=== PATIENT | female | born 1935 | race Caucasian/White ===

== ENCOUNTER 2019-05-25 21:59 | Observation (INO) ==
[2019-05-25] MEDS ORDERED: ONDANSETRON INJ 2 MG/ML 2 ML VIAL IV STA (22:03)
[2019-05-25] MEDS ORDERED: MoRPHine SULFATE 2 MG/ML CARP IV STA (22:03)
[2019-05-25] MEDS ORDERED: SODIUM CHLORIDE 0.9% 1000ML 1,000 ML IV ONE (22:03)
[2019-05-25 22:19] LABS: Hematocrit (blood only) 40.6 % (37-47); Hemoglobin 13.9 g/dL (12.0-16.0); Mean Corpuscular Hemoglobin 31.7 pg (25-34); Mean Corpuscular Hgb Conc 34.2 g/dL (32-36); Mean Corpuscular Volume 92.7 fL (80-100); Mean Platelet Volume 10.3 fL (7.4-10.4); Platelet Count 209 K/uL (130-400); RDW Coefficient of Variation 14.4 % (11.5-14.5); RDW Standard Deviation 48.9 fL (36.4-46.3); Red Blood Count 4.38 M/uL (4.2-5.4); White Blood Count 13.99 K/uL (4.8-10.8)
[2019-05-25] MEDS ORDERED: IOVERSOL 100ml IV PRN (22:19)
[2019-05-25 22:26] LABS: iSTAT Creatinine 0.7 mg/dl (0.6-1.3); iSTAT Hemoglobin 14.6 g/dl (12.0-16.0); iSTAT Ionized Calcium 1.14 mmol/l (1.12-1.32); iSTAT Potassium 3.4 mEq/L (3.3-5.0)
[2019-05-25 22:37] LABS: Albumin Level 3.5 gm/dl (3.4-5.0); BUN Creatinine Ratio 26.4 (10-20); Calcium 9.6 mg/dl (8.5-10.1); Creatinine Clr Calc Pharmacy 43.4 ml/min; Est GFR (African American) 67.1; Est GFR (Non-African American) 57.9; Potassium 3.5 mmol/L (3.5-5.1)
[2019-05-25 22:47] LABS: Albumin Globulin Ratio 0.9 (0.9-2); Bilirubin,Total 0.4 mg/dl (0.2-1); Globulin 3.9 gm/dl (2.5-4.0); Total Protein 7.4 gm/dl (6.4-8.2); Troponin I 0.058 ng/ml (0-0.045)
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
[2019-05-25 23:20] LABS: ALC (manual) 5.79 K/uL (1.2-3.4); ANC (manual) 7.06 K/uL (1.4-6.5); Basophils # (manual) 0.13 K/uL (0-0.2); Basophils % (manual) 0.9 %; Eosinophils % (manual) 3.6 %; Large Granular Lymph # (manua 3.27 K/uL; Large Granular Lymph % (manual) 23.4 %; Lymphocytes # (manual) 2.52 K/uL (1.2-3.4); Monocytes # (manual) 0.38 K/uL (0.11-0.59); Monocytes % (manual) 2.7 %; Myelocytes # (manual) 0.13 K/uL (0-0); Myelocytes % (manual) 0.9 %; Neutrophils # (manual) 7.06 K/uL (1.4-6.5); Neutrophils % (manual) 50.5 %; RBC Morphology Unremarkable
[2019-05-26] MEDS ORDERED: ATENOLOL 50 MG TABLET PO STA (00:09)
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
--- NOTE | 2019-05-26 02:01 | Emergency Department Note ---
ED Visit Note Limited Point of Care [place] Ultrasound performed by me: Indication: Trauma Findings: Limited cardiac ultrasonography via subxiphoid and parasternal long view showed cardiac wall motion activity, no pericardial fluid, no tamponade. Limited chest ultrasound revealed bilateral lung sliding. Limited abdominal ultrasound revealed no free fluid within Morrisons pouch, splenorenal space, or the pouch of Gray. Impression: Negative FAST exam. . : Chest pain Qualifiers: Chest pain type: unspecified Qualified Code(s): R07.9 - Chest pain, unspecified Chest wall contusion Qualifiers: Encounter type: initial encounter Laterality: unspecified laterality Qualified Code(s): S20.219A - Contusion of unspecified front wall of thorax, initial encounter
[2019-05-26] MEDS ORDERED: LACTATED RINGER'S 1,000 ML IV ONE (02:14)
[2019-05-26] MEDS ORDERED: ACETAMINOPHEN 325 MG TAB PO PRN (02:14)
[2019-05-26] MEDS ORDERED: MoRPHine SULFATE 2 MG/ML CARP IV PRN (02:14)
[2019-05-26] MEDS ORDERED: PROMETHAZINE HCL 12.5 MG in SODIUM CHLORIDE 0.9% 50 ML IV PRN (02:14)
[2019-05-26] MEDS: TRAMADOL HCL 50 MG TABLET PO PRN (02:30)
[2019-05-26 04:28] LABS: Basophils # (auto) 0.02 K/uL (0-0.2); Basophils % (auto) 0.2 %; Eosinophils # (auto) 0.05 K/uL (0-0.5); Eosinophils % (auto) 0.4 %; Hematocrit (blood only) 37.1 % (37-47); Hemoglobin 12.4 g/dL (12.0-16.0); Immature Granulocytes # (auto) 0.05 K/uL (0.00-0.02); Immature Granulocytes % (auto) 0.4 %; Lymphocytes # (auto) 1.91 K/uL (1.2-3.4); Lymphocytes % (auto) 14.4 %; Mean Corpuscular Hgb Conc 33.4 g/dL (32-36); Mean Corpuscular Volume 92.8 fL (80-100); Mean Platelet Volume 10.2 fL (7.4-10.4); Monocytes # (auto) 0.96 K/uL (0.11-0.59); Monocytes % (auto) 7.2 %; Neutrophils # (auto) 10.28 K/uL (1.4-6.5); Neutrophils % (auto) 77.4 %; Platelet Count 173 K/uL (130-400); RDW Coefficient of Variation 14.3 % (11.5-14.5); RDW Standard Deviation 48.8 fL (36.4-46.3); White Blood Count 13.27 K/uL (4.8-10.8)
[2019-05-26 04:38] LABS: Partial Thromboplastin Ratio 0.9; Partial Thromboplastin Time 24.3 Seconds (21.0-31.0)
[2019-05-26 04:46] LABS: BUN Creatinine Ratio 30.7 (10-20); Calcium 8.3 mg/dl (8.5-10.1); Creatinine Clr Calc Pharmacy 57.1 ml/min; Est GFR (African American) 92.6; Est GFR (Non-African American) 79.9; Potassium 3.5 mmol/L (3.5-5.1)
[2019-05-26 04:52] LABS: Troponin I 0.067 ng/ml (0-0.045)
[2019-05-26] MEDS: LEVOTHYROXINE SODIUM 100 MCG TABLET PO SCH (05:38)
[2019-05-26] MEDS: LISINOPRIL 20 MG TAB PO SCH (05:38)
[2019-05-26 06:38] LABS: Estimated Average Glucose 117 mg/dl; Hemoglobin A1C 5.7 % (4.5-5.6)
[2019-05-26] MEDS: MULTIVITAMIN TAB PO SCH (08:13)
[2019-05-26] MEDS: LIOTHYRONINE SODIUM 5 MCG TAB PO SCH (08:13)
[2019-05-26] MEDS ORDERED: LISINOPRIL 10 MG TAB PO SCH (09:00)
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
[2019-05-26 18:51] LABS: Appearance Urine Clear (Clear); Bacteria Urine Automated Negative (Negative); Bilirubin Urine Negative (Negative); Blood Urine Negative (Negative); Cast Urine Automated 0 /lpf (0-5); Color Urine Yellow; Glucose Urine UA Negative (Negative); Ketones Urine Negative (Negative); Leukocyte Esterase Urine 2+ (Negative); Nitrite Urine Negative (Negative); Protein Urine Negative (Negative); RBC Urine Automated 0-4 /hpf (0-4); Specific Gravity Urine 1.025 (1.000-1.030); Urobilinogen Urine Negative (Negative)
[2019-05-27] MEDS: LEVOTHYROXINE SODIUM 100 MCG TABLET PO SCH (06:18)
[2019-05-27] MEDS: LIOTHYRONINE SODIUM 5 MCG TAB PO SCH (07:55)
[2019-05-27] MEDS: MULTIVITAMIN TAB PO SCH (07:55)
[2019-05-27] MEDS: LISINOPRIL 20 MG TAB PO SCH (07:55)
[2019-05-27] MEDS ORDERED: ATENOLOL 50 MG TABLET PO SCH (09:00)
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
[2019-05-27] MEDS: TRAMADOL HCL 50 MG TABLET PO PRN (10:38)
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
== END 2019-05-27 15:53 | disposition home or self-care (01) ==
LOC: ED 21:59 → 2S 21:59 → SUATTDRO 05-26 01:23 → 2S 05-26 01:40

== ENCOUNTER 2020-12-06 12:47 | Inpatient (IN) ==
[2020-12-06] MEDS ORDERED: SODIUM CHLORIDE 0.9% 1000ML 1,000 ML IV SCH (13:00)
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
[2020-12-06 13:52] LABS: Basophils # (auto) 0.03 K/uL (0-0.2); Basophils % (auto) 0.3 %; Eosinophils # (auto) 0.08 K/uL (0-0.5); Eosinophils % (auto) 0.9 %; Hematocrit (blood only) 41.6 % (37-47); Hemoglobin 14.1 g/dL (12.0-16.0); Immature Granulocytes # (auto) 0.02 K/uL (0.00-0.02); Immature Granulocytes % (auto) 0.2 %; Lymphocytes # (auto) 1.53 K/uL (1.2-3.4); Lymphocytes % (auto) 17.1 %; Mean Corpuscular Hemoglobin 31.2 pg (25-34); Mean Corpuscular Hgb Conc 33.9 g/dL (32-36); Mean Platelet Volume 10.6 fL (7.4-10.4); Monocytes # (auto) 0.57 K/uL (0.11-0.59); Monocytes % (auto) 6.4 %; Neutrophils # (auto) 6.74 K/uL (1.4-6.5); Neutrophils % (auto) 75.1 %; Platelet Count 153 K/uL (130-400); RDW Coefficient of Variation 16.5 % (11.5-14.5); Red Blood Count 4.52 M/uL (4.2-5.4); White Blood Count 8.97 K/uL (4.8-10.8)
--- NOTE | 2020-12-06 14:02 | XRay Report ---
XR chest 1V portable HISTORY: 85 years-old Female SEPSIS acute sepsis COMPARISON: Chest radiograph 10/18/2012 TECHNIQUE: Portable AP view of the chest FINDINGS: Cardiac silhouette is normal. Moderate bilateral irregular airspace opacities. There is no pneumothor ax, pleural effusion or overt pulmonary edema. Degenerative changes of the shoulders and spine ORIF h ardware of the proximal right humerus. IMPRESSION: Moderate bilateral airspace opacities suggest multifocal pneumonia. ACT 112: Negative or not required by law. The above report was generated using voice recognition software. It may contain grammatical, syntax o r spelling errors. Electronically signed by: Jeff Mims M.D. 12/06/2020 2:01 PM
[2020-12-06 14:06] LABS: Appearance Urine Clear (Clear); Bacteria Urine Automated Negative (Negative); Bilirubin Urine Negative (Negative); Blood Urine Negative (Negative); Color Urine Yellow; Epithelial Cell Urine Auto >30 /lpf (0-5); Glucose Urine UA Negative (Negative); Ketones Urine 2+ (Negative); Leukocyte Esterase Urine Trace (Negative); Nitrite Urine Negative (Negative); Protein Urine Trace (Negative); RBC Urine Automated 0-4 /hpf (0-4); Specific Gravity Urine 1.023 (1.000-1.030); Urobilinogen Urine Negative (Negative); pH Urine 5.5 (4.5-7.5)
[2020-12-06] MEDS ORDERED: cefTRIAXone SODIUM 2,000 MG/70 ML BAG IV STA (14:10)
[2020-12-06] MEDS ORDERED: AZITHROMYCIN 500 MG in DEXTROSE 5% 250 ML IV STA (14:10)
[2020-12-06 14:14] LABS: Partial Thromboplastin Time 25.7 Seconds (21.0-31.0); Prothrombin Time 10.4 Seconds (9.0-12.0)
[2020-12-06 14:31] LABS: Cast Urine Automated 0 /lpf (0-5)
[2020-12-06 14:32] LABS: Albumin Globulin Ratio 0.6 (0.9-2); Albumin Level 2.5 gm/dl (3.4-5.0); BUN Creatinine Ratio 52.2 (10-20); Bilirubin,Total 0.7 mg/dl (0.2-1); Calcium 9.1 mg/dl (8.5-10.1); Creatinine Clr Calc Pharmacy 62.2 ml/min; Est GFR (African American) 94.1; Est GFR (Non-African American) 81.2; Globulin 4.5 gm/dl (2.5-4.0); Magnesium 1.9 mg/dl (1.8-2.4); Potassium 3.7 mmol/L (3.5-5.1); Troponin I 0.169 ng/ml (0-0.045)
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
--- NOTE | 2020-12-06 17:40 | CT Scan Report ---
CT chest diagnostic wo con CT DOSE: 402.58 mGy.cm CLINICAL HISTORY: 85 years-old Female with bilateral patchy infiltrates. Acute shortness of breath w ith pulmonary opacities TECHNIQUE: Multiaxial CT images of the chest were performed without contrast. A dose lowering techni que was utilized adhering to the principles of ALARA. COMPARISON: Chest CT 05/25/2019 FINDINGS: Unremarkable thyroid. Study is degraded by respiratory motion artifact. Mildly prominent me diastinal lymph nodes are likely reactive. Calcified AP window lymph nodes redemonstrated. Heart is u pper limits of normal in size. Pericardial calcifications are noted in addition to extensive coronary artery calcifications. No thoracic aortic aneurysm. Calcified plaque of the thoracic aorta. Trace pleural effusions. No pneumothorax. Bilateral intralobular septal thickening. Extensive patchy bilateral airspace densities with intermixed groundglass opacities. Central airways are patent. No pn eumoperitoneum. No acute process of the imaged upper abdomen. Calcified granulomata of the liver and spleen. Tiny hiatal hernia. Degenerative changes of the spine and shoulders. Chondrocalcinosis of the glenohumeral joints. Partially imaged orthopedic hardware of the right proximal humerus. Bridging os teophytes are noted throughout the thoracic spine. IMPRESSION: 1. Cardiomegaly with intralobular septal thickening suggestive of pulmonary edema. 2. Extensive bilateral airspace opacities suggests multifocal pneumonia. 3. Trace pleural effusions. 4. Additional findings as above. ACT 112: Negative or not required by law. Electronically signed by: Jeff Mims M.D. 12/06/2020 5:39 PM
[2020-12-06] MEDS ORDERED: ACETAMINOPHEN 325 MG TAB PO PRN (17:45)
[2020-12-06] MEDS ORDERED: POLYETHYLENE (MIRALAX) 17 GM PACK PO PRN (17:45)
[2020-12-06] MEDS ORDERED: ONDANSETRON INJ 2 MG/ML 2 ML VIAL IV PRN (17:45)
[2020-12-06] MEDS: ENOXAPARIN INJ 40 MG/0.4 ML SYR SQ SCH (18:18)
[2020-12-06 22:43] LABS: Influenza A virus by PCR Negative (Negative); Influenza B virus by PCR Negative (Negative)
[2020-12-07] MEDS ORDERED: ALBUTEROL HFA 8 GM INHALER INH SCH
[2020-12-07] MEDS: ALBUTEROL HFA 8 GM INHALER INH SCH ×4 (00:39→19:17)
[2020-12-07] MEDS: LEVOTHYROXINE SODIUM 100 MCG TABLET PO SCH (05:39)
[2020-12-07 06:12] LABS: Basophils # (auto) 0.03 K/uL (0-0.2); Basophils % (auto) 0.4 %; Eosinophils # (auto) 0.37 K/uL (0-0.5); Eosinophils % (auto) 5.4 %; Hematocrit (blood only) 37.2 % (37-47); Hemoglobin 12.6 g/dL (12.0-16.0); Immature Granulocytes # (auto) 0.01 K/uL (0.00-0.02); Immature Granulocytes % (auto) 0.1 %; Lymphocytes # (auto) 1.47 K/uL (1.2-3.4); Lymphocytes % (auto) 21.5 %; Mean Corpuscular Hgb Conc 33.9 g/dL (32-36); Mean Corpuscular Volume 91.6 fL (80-100); Mean Platelet Volume 10.8 fL (7.4-10.4); Monocytes % (auto) 8.8 %; Neutrophils # (auto) 4.36 K/uL (1.4-6.5); Neutrophils % (auto) 63.8 %; Platelet Count 158 K/uL (130-400); RDW Coefficient of Variation 16.6 % (11.5-14.5); RDW Standard Deviation 56.4 fL (36.4-46.3); Red Blood Count 4.06 M/uL (4.2-5.4); White Blood Count 6.84 K/uL (4.8-10.8)
[2020-12-07 06:50] LABS: Albumin Level 2.2 gm/dl (3.4-5.0); BUN Creatinine Ratio 56.2 (10-20); Bilirubin Direct 0.1 mg/dl (0-0.2); C Reactive Protein 5.5 mg/dl (0-0.29); Calcium 8.7 mg/dl (8.5-10.1); Creatinine Clr Calc Pharmacy 76.8 ml/min; Est GFR (African American) 100.9; Est GFR (Non-African American) 87.1; Magnesium 1.9 mg/dl (1.8-2.4); Potassium 3.2 mmol/L (3.5-5.1)
[2020-12-07 07:02] LABS: Bilirubin,Total 0.5 mg/dl (0.2-1); Thyroid Stimulating Hormone 3.96 uIu/ml (0.300-4.500); Total Protein 6.2 gm/dl (6.4-8.2); Troponin I 0.148 ng/ml (0-0.045)
--- NOTE | 2020-12-07 08:17 | Hospitalist Progress Note ---
Date of Service December 07, 2020 Assessment & Plan (1) Abnormal chest x-ray: Bilateral symmetrical patchy opacities on xray- PNA vs. IPF vs. viral CT chest 12/06/20 IMPRESSION: 1. Cardiomegaly with intralobular septal thickening suggestive of pulmonary edema. 2. Extensive bilateral airspace opacities suggests multifocal pneumonia. 3. Trace pleural effusions. - Started on ABX in the ER will continue Rocephin and Azithromycin- continue on bronchodialators to help with expectoration - Legionella antigen Histoplasmosis, mycoplasma, chlamydia sent - WBC 8, requiring 2LNC, non productive cough, PCT 1.31. [id number], PORT- 116, - Normal BNP - Will also send quantiferon gold - ESR/CRP mildly elevated (2) Acute respiratory failure with hypoxia: Pulse ox 86% on room air on arrival Placed on 2 L nasal cannula-continue supplemental O2 to keep pulse ox greater than 88% Secondary to pneumonia (3) UTI (urinary tract infection): Likely contaminant but with suprapubic tenderness - continue Rocephin until cultures result (4) CKD (chronic kidney disease), stage II: Follow avoid nephrotoxic agents as possible and if needed will minimize exposure - Patient at one time was on Lisinopril and Atenolol, unclear of discontinuation. - Risk stratify CVD- patient was with history of HLD but intolerant to medicaitons in 2012, (5) History of right-sided carotid endarterectomy: As above Start aspirin (6) Elevated troponin I level: Asymptomatic, normal ECG - most likely demand ischemia, not acs - risk stratify as above, add on ASA for primary prevention -Check lipid panel in the morning (7) Hypothyroid: Continue home Synthroid dose - TSH and T4 for morning (8) Arthritis: Tylenol PO - Patient uses cannabinoid oil at home, if able and needed, she may bring this from home and use. Will need to be ordered. (9) DVT prophylaxis: SCD's Lovenox 40 sq qd Admission and Anticipated Discharge Date Admission Date: December 06, 2020 Subjective pt was pleasantly confused, she was in no distress but was wearing oxygen, dry non productive cough, she states she has lost weight recently and family feels she has had a downhill course Review of Systems Review of Systems: Mild distress and fatigue no headache, blurry or double vision no speech or swallowing issues no chest pain, pressure or palpitations shortness of breath, dry nonproductive cough no wheezes no abdominal pain, nausea or vomiting, diarrhea or constipation no dysuria, hematuria or frequency no focal joint pain or swelling no back pain, CVA tenderness or radicular pain no bruising, bleeding or rashes no focal signs of weakness or numbness or altered sensation no complaints of anxiety or depression.. Physical Exam Physical Exam: The patient appeared well nourished and normally developed. Appears stated age Vital signs as documented. Head exam is normocephalic atraumatic no scleral icterus Neck is without JVD, thyromegaly, or carotid bruits. Lungs are diminished air movement no wheezes no focal air loss no egophony no rales Cardiac exam, Rhythm is regular.. No murmurs, rubs or gallops. Abdominal exam reveals normal bowel sounds, soft non tender, no masses Extremities are trace edematous and both pedal pulses are present Neurologic exam is alert and oriented x2, no focal loss of strength or sensation Skin is without bruises or rashes Psychologically is with concerns for memory impairment Results & Data Results & Data ([facility]) Vital Signs (Past 12 Hours) Vital Signs Temp Pulse Pulse Pulse Resp BP BP 12/07/20 07:12 66 12/07/20 07:04 68 18 12/07/20 07:00 98.4 F 73 20 117/69 12/07/20 05:53 98.1 F 67 20 147/85 H 12/07/20 04:03 98.6 F 76 18 125/70 12/07/20 00:40 73 16 12/06/20 23:29 98.1 F 69 18 127/76 12/06/20 22:49 71 12/06/20 20:04 98.8 F 74 18 130/79 Pulse Ox 12/07/20 07:12 12/07/20 07:04 95 12/07/20 07:00 93 12/07/20 05:53 93 12/07/20 04:03 96 12/07/20 00:40 93 12/06/20 23:29 96 12/06/20 22:49 12/06/20 20:04 94 PG Care Time/CCT Total # of Minutes Spent Total Time Spent with Patient: Total time spent is greater than 50% in coordination of care (as documented) at patient's floor/unit and/or counseling patient: Coding Level of Care Code 48880 Subseq Hosp Care Lvl 3 Diagnoses Abnormal chest x-ray R93.89 Acute respiratory failure with hypoxia J96.01 UTI (urinary tract infection) N39.0 CKD (chronic kidney disease), stage II N18.2 History of right-sided carotid endarterectomy Z98.890 Elevated troponin I level R74.8 Hypothyroid E03.8 Hypothyroidism type: other Arthritis M19.90 DVT prophylaxis Z29.9 (1) Hypothyroid Hypothyroidism type: other Qualified Code(s): E03.8 - Other specified hypothyroidism
[2020-12-07] MEDS ORDERED: MAGNESIUM SULFATE / D5W 1 GM/100 ML BAG IV ONE (08:30)
[2020-12-07] MEDS: POTASSIUM CHLORIDE CRTAB 20 MEQ TABCR PO SCH ×2 (08:57→20:12)
[2020-12-07] MEDS: ASPIRIN 81 MG ECTAB PO SCH (08:57)
[2020-12-07] MEDS: AZITHROMYCIN 250 MG TAB PO SCH (08:58)
[2020-12-07] MEDS: ENOXAPARIN INJ 40 MG/0.4 ML SYR SQ SCH (08:58)
[2020-12-07] MEDS ORDERED: methylPREDNISolone 125 MG in SYRINGE 0 ML IV SCH (09:00)
--- NOTE | 2020-12-07 12:34 | Electrocardiogram Report ---
Test Reason : Blood Pressure : / mmHG Vent. Rate : 081 BPM Atrial Rate : 081 BPM P-R Int : 176 ms QRS Dur : 086 ms QT Int : 374 ms P-R-T Axes : 015 -14 036 degrees QTc Int : 434 ms Normal sinus rhythm Normal ECG When compared with ECG of 26-MAY-2019 10:35, CO interval has decreased Confirmed by Herminio Dove ([id number]) on 12/07/2020 12:33:55 PM Referred By: REFERRED SELF Confirmed By:Herminio Dove
--- NOTE | 2020-12-07 12:45 | Electrocardiogram Report ---
Test Reason : Blood Pressure : / mmHG Vent. Rate : 067 BPM Atrial Rate : 067 BPM P-R Int : 186 ms QRS Dur : 080 ms QT Int : 408 ms P-R-T Axes : 049 -15 013 degrees QTc Int : 431 ms Normal sinus rhythm Minimal voltage criteria for LVH, may be normal variant Borderline ECG When compared with ECG of 06-DEC-2020 12:56, (unconfirmed) No significant change was found Confirmed by Herminio Dove ([id number]) on 12/07/2020 12:45:26 PM Referred By: REFERRED SELF Confirmed By:Herminio Dove
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
[2020-12-07] MEDS: cefTRIAXone SODIUM 2,000 MG in DEXTROSE 5% 50 ML IV SCH (14:08)
[2020-12-07] MEDS ORDERED: ALBUT/IPRATROP 3MG/0.5MG NEB 3 ML VIAL NEB PRN (18:03)
[2020-12-08] MEDS: ALBUTEROL HFA 8 GM INHALER INH SCH ×4 (00:08→19:21)
[2020-12-08] MEDS: LEVOTHYROXINE SODIUM 100 MCG TABLET PO SCH (06:03)
[2020-12-08 07:14] LABS: Basophils # (auto) 0.01 K/uL (0-0.2); Basophils % (auto) 0.1 %; Hematocrit (blood only) 38.8 % (37-47); Hemoglobin 12.9 g/dL (12.0-16.0); Immature Granulocytes # (auto) 0.04 K/uL (0.00-0.02); Immature Granulocytes % (auto) 0.4 %; Lymphocytes # (auto) 1.92 K/uL (1.2-3.4); Mean Corpuscular Hemoglobin 30.6 pg (25-34); Mean Corpuscular Hgb Conc 33.2 g/dL (32-36); Mean Corpuscular Volume 92.2 fL (80-100); Mean Platelet Volume 10.5 fL (7.4-10.4); Monocytes # (auto) 1.06 K/uL (0.11-0.59); Neutrophils # (auto) 7.61 K/uL (1.4-6.5); Neutrophils % (auto) 71.5 %; Platelet Count 187 K/uL (130-400); RDW Coefficient of Variation 16.2 % (11.5-14.5); RDW Standard Deviation 54.9 fL (36.4-46.3); Red Blood Count 4.21 M/uL (4.2-5.4); White Blood Count 10.64 K/uL (4.8-10.8)
[2020-12-08] MEDS: POTASSIUM CHLORIDE CRTAB 20 MEQ TABCR PO SCH (07:46)
[2020-12-08] MEDS: ASPIRIN 81 MG ECTAB PO SCH (07:49)
[2020-12-08] MEDS: ENOXAPARIN INJ 40 MG/0.4 ML SYR SQ SCH (07:49)
[2020-12-08] MEDS: AZITHROMYCIN 250 MG TAB PO SCH (07:49)
[2020-12-08 07:58] LABS: BUN Creatinine Ratio 47.9 (10-20); Calcium 8.6 mg/dl (8.5-10.1); Creatinine Clr Calc Pharmacy 87.1 ml/min; Est GFR (African American) 104.4; Est GFR (Non-African American) 90.1; Magnesium 2.2 mg/dl (1.8-2.4); Potassium 4.1 mmol/L (3.5-5.1)
[2020-12-08] MEDS: cefTRIAXone SODIUM 2,000 MG in DEXTROSE 5% 50 ML IV SCH (13:05)
--- NOTE | 2020-12-08 14:18 | Hospitalist Progress Note ---
Date of Service December 08, 2020 Assessment & Plan (1) Multifocal pneumonia: bilateral patchy infiltrates responding well to Ceftriaxone and Zithromax Legionella, Histoplasma, Chlamydia, quantiferon gold pending doing much better, down to 1L NC, no fever, WBC 10k, procalcitonin down to 0.44 complete 7 days of antibiotics (2) Abnormal CT scan of lung: appreciate pulmonary consultation needs repeat CT in several weeks follow up on send out labs no indication for steroids at this time as it is unclear what we are treating also, she is getting better on antibiotics alone (3) Abnormal chest x-ray: Bilateral symmetrical patchy opacities on xray- PNA vs. IPF vs. viral feeling much better the past 48 hours, good response to Ceftriaxone and Zithromax down to 1L NC today favors an atypical bacterial pneumonia CT chest 12/06/20 IMPRESSION: 1. Cardiomegaly with intralobular septal thickening suggestive of pulmonary edema. 2. Extensive bilateral airspace opacities suggests multifocal pneumonia. 3. Trace pleural effusions. - Legionella antigen Histoplasmosis, mycoplasma, chlamydia sent - WBC 10k, requiring 1LNC, non productive cough, PCT 0.44 - Normal BNP - Will also send quantiferon gold (pending) - ESR/CRP mildly elevated (4) Acute respiratory failure with hypoxia: Pulse ox 86% on room air on arrival Placed on 2 L nasal cannula-continue supplemental O2 to keep pulse ox greater than 88% Secondary to pneumonia down to 1L today, 96%, might be able to titrate to room air tonight/tomorrow (5) UTI (urinary tract infection): Likely contaminant but with suprapubic tenderness - continue Rocephin for pneumonia UTI ruled out, no growth on culture (6) CKD (chronic kidney disease), stage II: Follow avoid nephrotoxic agents as possible and if needed will minimize exposure - Patient at one time was on Lisinopril and Atenolol, unclear of disc ontinuation. Cr is stable, making urine (7) History of right-sided carotid endarterectomy: As above Start aspirin (8) Elevated troponin I level: Asymptomatic, normal ECG - most likely demand ischemia, not acs - risk stratify as above, add on ASA for primary prevention -Check lipid panel in the morning (9) Hypothyroid: Continue home Synthroid dose - TSH and T4 for morning (10) Arthritis: Tylenol PO - Patient uses cannabinoid oil at home, if able and needed, she may bring this from home and use. Will need to be ordered. (11) DVT prophylaxis: SCD's Lovenox 40 sq qd (12) Weakness: PT/OT consulted, has been sick for 2-3 weeks at home will likely need rehab anticipate that she would be ready 12/10 Admission and Anticipated Discharge Date Admission Date: December 06, 2020 Subjective reviewed chart, appreciate pulmonology consult, recommendations, will continue antibiotics reviewed labs today, WBC 10k, Hb 12.9, plts 187, K 4.1 and Cr 0.46 evaluated by OT today, she is weak, they recommended rehab prior to going home urine Legionella and histoplasma pending no fever, down to 1L NC today she says she feels better than yesterday, much better compared to admission her daughter is at the bedside, says she has not felt well for a few weeks, maybe 2-3 has not been eating well, losing weight discussed rehab, she and her daughter are open to the idea, discussed that she would be ready by Tuesday Review of Systems Review of Systems: All systems reviewed & are unremarkable except as noted in Subjective Constitutional: + fatigue and + weakness; no fever, no chills and no sweats Respiratory: + cough, + dyspnea and + dyspnea on exertion; no sputum production Cardiovascular: no chest pain and no edema Gastrointestinal: no abdominal pain, no nausea, no vomiting, no constipation and no diarrhea/loose stools Physical Exam Constitutional: WD/WN, vitals as above + frail appearing; no acute distress Neck: trachea midline, no thyromegaly Respiratory: normal respiratory effort, lungs clear to auscultation Cardiovascular: RRR, no murmur, no edema Gastrointestinal (Abdomen): normal bowel sounds, soft, nontender, no hepatosplenomegaly Musculoskeletal: Head/Neck/Chest: normocephalic, head atraumatic and neck supple Spine: normal cervical ROM and normal thoraco-lumbar ROM Extremities: extremities normal to inspection and + abnormal strength (generalized weakness, cannot transition independently) Skin: no rashes, warm and dry Neurologic: patellar DTR's 2+ bilat, sensation intact and PERRL, EOMI, accommodation nl, no face palsy, no dysarthria Psychiatric: A+Ox3, euthymic affect Lymphatic: no cervical or axillary lymphadenopathy Results & Data Results & Data ([facility]) Vital Signs (Past 12 Hours) Vital Signs Temp Pulse Pulse Pulse Resp BP BP 12/08/20 12:35 72 18 12/08/20 11:00 36.4 C L 71 16 145/79 H 12/08/20 10:34 12/08/20 07:30 36.6 C 64 66 18 163/82 H 12/08/20 07:13 68 18 12/08/20 04:10 36.5 C 66 18 152/79 H Pulse Ox Pulse Ox 12/08/20 12:35 97 12/08/20 11:00 95 12/08/20 10:34 92 12/08/20 07:30 95 12/08/20 07:13 94 12/08/20 04:10 90 Laboratory Results Laboratory Results - last 24 hr 12/08/20 12/08/20 12/08/20 06:47 06:47 06:47 WBC 10.64 RBC 4.21 Hgb 12.9 Hct 38.8 MCV 92.2 MCH 30.6 MCHC 33.2 RDW Std Deviation 54.9 H RDW Coeff of Dio 16.2 H Plt Count 187 MPV 10.5 H Immature Gran % (Auto) 0.4 Neut % (Auto) 71.5 Lymph % (Auto) 18.0 Darke % (Auto) 10.0 Eos % (Auto) 0.0 Baso % (Auto) 0.1 Neut # (Auto) 7.61 H Lymph # (Auto) 1.92 Darke # (Auto) 1.06 H Eos # (Auto) 0.00 Baso # (Auto) 0.01 Immature Gran # (Auto) 0.04 H Sodium 139 Potassium 4.1 D Chloride 108 H Carbon Dioxide 24 Anion Gap 7.0 BUN 22 H Creatinine 0.46 L Est Cr Clr Drug Dosing 87.1 Est GFR ( Amer) 104.4 Est GFR (Non-Af Amer) 90.1 BUN/Creatinine Ratio 47.9 H Glucose 114 H Calcium 8.6 Magnesium 2.2 Procalcitonin 0.44 U Histopl Galactoman Ag Urine Legionella Ag 12/08/20 12/08/20 Unknown Unknown WBC RBC Hgb Hct MCV MCH MCHC RDW Std Deviation RDW Coeff of Dio Plt Count MPV Immature Gran % (Auto) Neut % (Auto) Lymph % (Auto) Darke % (Auto) Eos % (Auto) Baso % (Auto) Neut # (Auto) Lymph # (Auto) Darke # (Auto) Eos # (Auto) Baso # (Auto) Immature Gran # (Auto) Sodium Potassium Chloride Carbon Dioxide Anion Gap BUN Creatinine Est Cr Clr Drug Dosing Est GFR ( Amer) Est GFR (Non-Af Amer) BUN/Creatinine Ratio Glucose Calcium Magnesium Procalcitonin U Histopl Galactoman Ag Pending Urine Legionella Ag Pending Medications Administered Current Inpatient Medications Acetaminophen (Acetaminophen 325 Mg Tab) 650 mg PO Q4H PRN PRN Reason: Pain or Fever Stop: 01/05/21 17:44 Albuterol (Albuterol Hfa 8 Gm Inhaler) 2 puffs INH Q6R [facility]; Protocol Stop: 01/06/21 00:59 Last Admin: 12/08/20 12:34 Dose: 2 puffs Documented by: Albuterol (Albut/Ipratrop 3mg/0.5mg Neb 3 Ml Vial) 3 ml NEB Q4R PRN PRN Reason: Shortness Of Breath Or Wheezing Stop: 01/06/21 18:59 Aspirin (Aspirin 81 Mg Ectab) 81 mg PO [facility] Stop: 01/06/21 08:59 Last Admin: 12/08/20 07:49 Dose: 81 mg Documented by: Azithromycin (Azithromycin 250 Mg Tab) 250 mg PO [facility] Stop: 12/14/20 08:59 Last Admin: 12/08/20 07:49 Dose: 250 mg Documented by: Enoxaparin Sodium (Enoxaparin Inj 40 Mg/0.4 Ml Syr) 40 mg SQ [facility] Stop: 01/05/21 16:14 Last Admin: 12/08/20 07:49 Dose: 40 mg Documented by: Ceftriaxone Sodium 2,000 mg/ (Dextrose) 50 mls @ 100 mls/hr IV Q24H [facility]; Protocol Stop: 12/14/20 13:59 Last Infusion: 12/08/20 13:46 Dose: Infused Documented by: Levothyroxine Sodium (Levothyroxine Sodium 100 Mcg Tablet) [facility] Stop: 01/06/21 06:29 Last Admin: 12/08/20 06:03 Dose: Not Given Documented by: Ondansetron HCl (Ondansetron Inj 2 Mg/Ml 2 Ml Vial) 4 mg IV Q6H PRN PRN Reason: Nausea Stop: 01/05/21 17:44 Polyethylene Glycol (Polyethylene (Miralax) 17 Gm Pack) 17 gm PO DAILY PRN PRN Reason: Constipation Stop: 01/05/21 17:44 Last Admin: 12/06/20 18:15 Dose: 17 gm Documented by: PG Care Time/CCT Total # of Minutes Spent Total Time Spent with Patient: Total time spent is greater than 50% in coordination of care (as documented) at patient's floor/unit and/or counseling patient: Coding Level of Care Code 97012 Subseq Hosp Care Lvl 3 Diagnoses Multifocal pneumonia J18.[address] scan of lung R91.8 Abnormal chest x-ray R93.89 Acute respiratory failure with hypoxia J96.01 UTI (urinary tract infection) N39.0 CKD (chronic kidney disease), stage II N18.2 History of right-sided carotid endarterectomy Z98.890 Elevated troponin I level R74.8 Hypothyroid E03.8 Hypothyroidism type: other Arthritis M19.90 DVT prophylaxis Z29.9 Weakness R53.1 (1) Hypothyroid Hypothyroidism type: other Qualified Code(s): E03.8 - Other specified hypothyroidism
--- NOTE | 2020-12-08 16:23 | Pulmonology Progress Note ---
Date of Service December 08, 2020 Assessment & Plan (1) Multifocal pneumonia: (2) Hypoxia: (3) Acute respiratory failure with hypoxia: (4) Abnormal CT scan of lung: Impression: 85-year-old female without prior pulmonary history presenting with fevers, weight loss and an abnormal CT scan with nonproductive cough. Her procalcitonin is elevated which would argue for bacterial infection. This may be consistent with an atypical pneumonia. Mycoplasma serologies are pending. Recommendations: 1. This pattern may be consistent with an atypical infectious etiology. . She prefers a more conservative approach at this time and supposed to bronchoscopy. Will reevaluate tomorrow. Awaiting atypical infectious work-up including Chlamydia serologies, mycoplasma and Legionella. Recommend completing 5 to 7 days of antimicrobial therapy and considering follow-up CT imaging in 4 to 6 weeks depending on clinical course. 2. Would not recommend empiric steroids at this point time as it is unclear what were treating. The differential would include other inflammatory and proliferative disorders such as LIP, bronchocentric granulomatosis as well as atypical infections including nontuberculous mycobacterial infection. The pattern would not be consistent with reactivation pulmonary TB and I think the likelihood of that is much lower. QuantiFERON gold is pending. Difficulty with steroids is that if the patient responds, we are unclear what were treating which makes long-term management more complicated. Given her clinical improvement would follow clinically and reassess. This was also discussed with the patient's daughter, Tesha Garcia. Her phone number is [phone]. She would like an update tomorrow. Admission and Anticipated Discharge Date Admission Date: December 06, 2020 Subjective Patient feels that her breathing is a little easier today. She has not been very active today and so it is difficult for her to say what her dyspnea level is with exertion. She denies any significant cough. No fevers overnight. No chest pain. Her daughters at bedside today. Review of Systems Review of Systems: All systems reviewed & are unremarkable except as noted in HPI & below Physical Exam Constitutional: WD/WN, vitals as above Neck: trachea midline, no thyromegaly Respiratory: normal respiratory effort Auscultation: + wheezes Minimal crackles in the left lower lobe. Cardiovascular: RRR, no murmur, no edema Gastrointestinal (Abdomen): normal bowel sounds, soft, nontender, no hepatosplenomegaly Musculoskeletal: Extremities: extremities normal to inspection Skin: no rashes, warm and dry Neurologic: Nonfocal exam Lymphatic: no cervical lymphadenopathy Results & Data Results & Data ([facility]) Vital Signs (Past 12 Hours) Vital Signs Temp Pulse Pulse Pulse Resp BP BP 12/08/20 14:49 98.1 F 75 20 126/77 12/08/20 12:35 72 18 12/08/20 11:00 97.5 F L 71 16 145/79 H 12/08/20 10:34 12/08/20 07:30 97.9 F 64 66 18 163/82 H 12/08/20 07:13 68 18 Pulse Ox Pulse Ox 12/08/20 14:49 96 12/08/20 12:35 97 12/08/20 11:00 95 12/08/20 10:34 92 12/08/20 07:30 95 12/08/20 07:13 94 I reviewed the medications, vital signs, labs and CT chest imaging. I also reviewed the hospitalist notes. PG Care Time/CCT Total # of Minutes Spent Total Time Spent with Patient: Total time spent is greater than 50% in coordination of care (as documented) at patient's floor/unit and/or counseling patient: Coding Level of Care Code 32952 Subseq Hosp Care Lvl 3 Diagnoses Multifocal pneumonia J18.9 Hypoxia R09.02 Acute respiratory failure with hypoxia J96.[address] scan of lung R91.8
[2020-12-09] MEDS: ALBUTEROL HFA 8 GM INHALER INH SCH ×2 (00:11→07:18)
[2020-12-09] MEDS: LEVOTHYROXINE SODIUM 100 MCG TABLET PO SCH (05:38)
[2020-12-09] MEDS ORDERED: ALBUTEROL HFA 8 GM INHALER INH PRN (07:17)
[2020-12-09 07:44] LABS: Basophils # (auto) 0.03 K/uL (0-0.2); Basophils % (auto) 0.3 %; Eosinophils # (auto) 0.35 K/uL (0-0.5); Hematocrit (blood only) 37.6 % (37-47); Hemoglobin 12.4 g/dL (12.0-16.0); Immature Granulocytes # (auto) 0.02 K/uL (0.00-0.02); Immature Granulocytes % (auto) 0.2 %; Lymphocytes # (auto) 2.55 K/uL (1.2-3.4); Lymphocytes % (auto) 29.3 %; Mean Corpuscular Hemoglobin 30.5 pg (25-34); Mean Corpuscular Volume 92.4 fL (80-100); Mean Platelet Volume 10.1 fL (7.4-10.4); Monocytes # (auto) 1.14 K/uL (0.11-0.59); Monocytes % (auto) 13.1 %; Neutrophils # (auto) 4.61 K/uL (1.4-6.5); Neutrophils % (auto) 53.1 %; Platelet Count 182 K/uL (130-400); RDW Coefficient of Variation 16.2 % (11.5-14.5); RDW Standard Deviation 55.1 fL (36.4-46.3); Red Blood Count 4.07 M/uL (4.2-5.4)
[2020-12-09 08:19] LABS: BUN Creatinine Ratio 37.5 (10-20); Calcium 8.5 mg/dl (8.5-10.1); Creatinine Clr Calc Pharmacy 77.1 ml/min; Est GFR (African American) 100.3; Est GFR (Non-African American) 86.5; Magnesium 1.7 mg/dl (1.8-2.4); Potassium 3.9 mmol/L (3.5-5.1)
[2020-12-09] MEDS: ASPIRIN 81 MG ECTAB PO SCH (08:41)
[2020-12-09] MEDS: AZITHROMYCIN 250 MG TAB PO SCH (08:41)
[2020-12-09] MEDS: ENOXAPARIN INJ 40 MG/0.4 ML SYR SQ SCH (08:42)
--- NOTE | 2020-12-09 08:50 | XRay Report ---
XR chest 1V portable HISTORY: pneumonia, hypoxemia COMPARISON: Chest 12/06/2020. FINDINGS: No pneumothorax. No pleural effusions. The heart is borderline enlarged. Postoperative adler ges again noted within the proximal right humerus. Patchy bilateral multifocal airspace opacities and diffuse interstitial thickening persists. IMPRESSION: No change in the moderate multifocal airspace opacities consistent with a pneumonia. ACT 112: Negative or not required by law. Electronically signed by: Rip Watson M.D. 12/09/2020 8:49 AM
--- NOTE | 2020-12-09 09:57 | Hospitalist Progress Note ---
Date of Service December 09, 2020 Assessment & Plan (1) Multifocal pneumonia: bilateral patchy infiltrates responding well to Ceftriaxone and Zithromax, complete 7 days Legionella, Histoplasma, Chlamydia, quantiferon gold still pending doing much better, stable on 3L NC, no fever, WBC 8k, procalcitonin down to 0.44 on 12/08 complete 7 days of antibiotics (2) Abnormal CT scan of lung: appreciate pulmonary consultation needs repeat CT in several weeks, no plans for bronchoscopy at this time follow up on send out labs no indication for steroids at this time as it is unclear what we are treating also, she is getting better on antibiotics alone (3) Abnormal chest x-ray: Bilateral symmetrical patchy opacities on xray- PNA vs. IPF vs. viral feeling much better the past 48 hours, good response to Ceftriaxone and Zithromax down to 1L NC today favors an atypical bacterial pneumonia CT chest 12/06/20 IMPRESSION: 1. Cardiomegaly with intralobular septal thickening suggestive of pulmonary edema. 2. Extensive bilateral airspace opacities suggests multifocal pneumonia. 3. Trace pleural effusions. - Legionella antigen Histoplasmosis, mycoplasma, chlamydia sent - WBC 8k, requiring 3LNC, non productive cough, PCT 0.44 - Normal BNP - Will also send quantiferon gold (pending) - ESR/CRP mildly elevated (4) Acute respiratory failure with hypoxia: Pulse ox 86% on room air on arrival Placed on 2 L nasal cannula-continue supplemental O2 to keep pulse ox greater than 88% Secondary to pneumonia up a little at 3L but would probably be okay on 2L (5) UTI (urinary tract infection): Likely contaminant but with suprapubic tenderness - continue Rocephin for pneumonia UTI ruled out, no growth on culture (6) CKD (chronic kidney disease), stage II: Follow avoid nephrotoxic agents as possible and if needed will minimize exposure - Patient at one time was on Lisinopril and Atenolol, unclear of discontinuation. Cr is stable, making urine (7) History of right-sided carotid endarterectomy: As above Start aspirin (8) Elevated troponin I level: Asymptomatic, normal ECG - most likely demand ischemia, not acs - risk stratify as above, add on ASA for primary prevention -Check lipid panel in the morning (9) Hypothyroid: Continue home Synthroid dose - TSH and T4 for morning (10) Arthritis: Tylenol PO - Patient uses cannabinoid oil at home, if able and needed, she may bring this from home and use. Will need to be ordered. (11) DVT prophylaxis: SCD's Lovenox 40 sq qd (12) Weakness: PT/OT consulted, has been sick for 2-3 weeks at home will likely need rehab anticipate that she would be ready 12/10 (13) Hypomagnesemia: low at 1.7, will give Mag Sulfate 1gm IV today Admission and Anticipated Discharge Date Admission Date: December 06, 2020 Subjective patient feels fine this morning, no major issues she says she does not feel short of breath, she is on 3L, she walked with therapy her appetite is still very poor, this has been ongoing for weeks, family has gotten medicinal marijuana to try to help labs this morning show normal WBC, Hb 12, K 3.9, Cr 0.5 and Mg 1.7, will replace IV she agrees with goal of going to rehab she walked 125ft and got fatigued, had to sit in wheelchair and then walked 12 ft, click score was 20 not medically ready for discharge Review of Systems Review of Systems: All systems reviewed & are unremarkable except as noted in Subjective Constitutional: + fatigue and + weakness; no fever, no chills and no sweats Respiratory: + cough, + dyspnea and + dyspnea on exertion; no hemoptysis, no sputum production and no wheezing Cardiovascular: no chest pain and no edema Gastrointestinal: + early satiety (no appetite); no abdominal pain, no nausea, no vomiting, no constipation and no diarrhea/loose stools Physical Exam Constitutional: WD/WN, vitals as above + frail appearing; no acute distress Neck: trachea midline, no thyromegaly Respiratory: normal respiratory effort, lungs clear to auscultation Cardiovascular: RRR, no murmur, no edema Gastrointestinal (Abdomen): normal bowel sounds, soft, nontender, no hepatosplenomegaly Musculoskeletal: Head/Neck/Chest: normocephalic, head atraumatic and neck supple Spine: normal cervical ROM and normal thoraco-lumbar ROM Extremities: extremities normal to inspection and + abnormal strength (generalized weakness, cannot transition independently) Skin: no rashes, warm and dry Neurologic: patellar DTR's 2+ bilat, sensation intact and PERRL, EOMI, accommodation nl, no face palsy, no dysarthria Psychiatric: A+Ox3, euthymic affect Lymphatic: no cervical or axillary lymphadenopathy Results & Data Results & Data ([facility]) Vital Signs (Past 12 Hours) Vital Signs Temp Pulse Resp BP Pulse Ox Pulse Ox 12/09/20 07:11 36.7 C 65 16 147/81 H 94 12/09/20 06:14 69 136/74 94 12/09/20 02:03 98 12/09/20 00:13 66 18 98 12/08/20 23:26 36.5 C 69 18 127/75 98 Laboratory Results Laboratory Results - last 24 hr 12/09/20 12/09/20 07:33 07:33 WBC 8.70 RBC 4.07 L Hgb 12.4 Hct 37.6 MCV 92.4 MCH 30.5 MCHC 33.0 RDW Std Deviation 55.1 H RDW Coeff of Dio 16.2 H Plt Count 182 MPV 10.1 Immature Gran % (Auto) 0.2 Neut % (Auto) 53.1 Lymph % (Auto) 29.3 [place] % (Auto) 13.1 Eos % (Auto) 4.0 Baso % (Auto) 0.3 Neut # (Auto) 4.61 Lymph # (Auto) 2.55 [place] # (Auto) 1.14 H Eos # (Auto) 0.35 Baso # (Auto) 0.03 Immature Gran # (Auto) 0.02 Sodium 140 Potassium 3.9 Chloride 109 H Carbon Dioxide 27 Anion Gap 4.0 BUN 20 H Creatinine 0.52 L Est Cr Clr Drug Dosing 77.1 Est GFR ( Amer) 100.3 Est GFR (Non-Af Amer) 86.5 BUN/Creatinine Ratio 37.5 H Glucose 80 Calcium 8.5 Magnesium 1.7 L Medications Administered Current Inpatient Medications Acetaminophen (Acetaminophen 325 Mg Tab) 650 mg PO Q4H PRN PRN Reason: Pain or Fever Stop: 01/05/21 17:44 Albuterol (Albut/Ipratrop 3mg/0.5mg Neb 3 Ml Vial) 3 ml NEB Q4R PRN PRN Reason: Shortness Of Breath Or Wheezing Stop: 01/06/21 18:59 Albuterol (Albuterol Hfa 8 Gm Inhaler) 2 puffs INH Q6R PRN; Protocol PRN Reason: Shortness Of Breath Or Wheezing Stop: 01/06/21 00:59 Aspirin (Aspirin 81 Mg Ectab) [facility] Stop: 01/06/21 08:59 Last Admin: 12/09/20 08:41 Dose: 81 mg Documented by: Azithromycin (Azithromycin 250 Mg Tab) 250 mg PO QAM [facility] Stop: 12/14/20 08:59 Last Admin: 12/09/20 08:41 Dose: 250 mg Documented by: Enoxaparin Sodium (Enoxaparin Inj 40 Mg/0.4 Ml Syr) 40 mg SQ [facility] Stop: 01/05/21 16:14 Last Admin: 12/09/20 08:42 Dose: 40 mg Documented by: Ceftriaxone Sodium 2,000 mg/ (Dextrose) 50 mls @ 100 mls/hr IV Q24H [facility]; Protocol Stop: 12/14/20 13:59 Last Infusion: 12/08/20 13:46 Dose: Infused Documented by: Magnesium Sulfate/Dextrose (Magnesium Sulfate / D5w) 1 gm in 100 mls @ 50 mls/hr IV ONE ONE Stop: 12/09/20 11:53 Levothyroxine Sodium (Levothyroxine Sodium 100 Mcg Tablet) [facility] Stop: 01/06/21 06:29 Last Admin: 12/09/20 05:38 Dose: 100 mcg Documented by: Ondansetron HCl (Ondansetron Inj 2 Mg/Ml 2 Ml Vial) 4 mg IV Q6H PRN PRN Reason: Nausea Stop: 01/05/21 17:44 Polyethylene Glycol (Polyethylene (Miralax) 17 Gm Pack) 17 gm PO DAILY PRN PRN Reason: Constipation Stop: 01/05/21 17:44 Last Admin: 12/06/20 18:15 Dose: 17 gm Documented by: PG Care Time/CCT Total # of Minutes Spent Total Time Spent with Patient: Total time spent is greater than 50% in coordination of care (as documented) at patient's floor/unit and/or counseling patient: Coding Level of Care Code 52165 Subseq Hosp Care Lvl 3 Diagnoses Multifocal pneumonia J18.[address] scan of lung R91.8 Abnormal chest x-ray R93.89 Acute respiratory failure with hypoxia J96.01 UTI (urinary tract infection) N39.0 CKD (chronic kidney disease), stage II N18.2 History of right-sided carotid endarterectomy Z98.890 Elevated troponin I level R74.8 Hypothyroid E03.8 Hypothyroidism type: other Arthritis M19.90 DVT prophylaxis Z29.9 Weakness R53.1 Hypomagnesemia E83.42 (1) Hypothyroid Hypothyroidism type: other Qualified Code(s): E03.8 - Other specified hypoth yroidism
--- NOTE | 2020-12-09 10:03 | Pulmonology Progress Note ---
Date of Service December 09, 2020 Assessment & Plan (1) Multifocal pneumonia: (2) Hypoxia: (3) Acute respiratory failure with hypoxia: (4) Abnormal CT scan of lung: Impression: 85-year-old female without prior pulmonary history presenting with fevers, weight loss and an abnormal CT scan with nonproductive cough. Her procalcitonin is elevated which would argue for bacterial infection. This may be consistent with an atypical pneumonia. Mycoplasma serologies are pending. Recommendations: Atypical infectious work-up is pending. Differential includes atypical infection, viral infection and possible idiopathic interstitial pneumonia. Recommend 7 days of antibiotics. Patient is very reluctant to undergo bronchoscopy and would prefer a more conservative approach. She has had improvement of her symptoms since hospital admission, but radiographic findings have been lagging behind. I did review the chest x-ray today which demonstrated continued diffuse opacities. I will start her on 40 mg of prednisone today and this can be weaned over the next 10 days. I called the patient's daughter and left a voicemail to call back with questions. Tesha Garcia is the daughter. Her phone number is [phone]. Admission and Anticipated Discharge Date Admission Date: December 06, 2020 Subjective Patient is sitting up in bed today. She is currently on 3 L of oxygen. She denies any cough or shortness of breath. She is working with physical therapy. She does not remember my talking to her yesterday. She is very reluctant to undergo a bronchoscopy. Review of Systems Review of Systems: All systems reviewed & are unremarkable except as noted in HPI & below Physical Exam Constitutional: WD/WN, vitals as above Neck: trachea midline, no thyromegaly Respiratory: normal respiratory effort Minimal crackles in the left lower lobe. Cardiovascular: RRR, no murmur, no edema Gastrointestinal (Abdomen): normal bowel sounds, soft, nontender, no hepatosplenomegaly Musculoskeletal: Extremities: extremities normal to inspection Skin: no rashes, warm and dry Neurologic: Nonfocal exam Lymphatic: no cervical lymphadenopathy Results & Data Results & Data ([facility]) Vital Signs (Past 12 Hours) Vital Signs Temp Pulse Resp BP Pulse Ox Pulse Ox 12/09/20 07:11 98.1 F 65 16 147/81 H 94 12/09/20 06:14 69 136/74 94 12/09/20 02:03 98 12/09/20 00:13 66 18 98 12/08/20 23:26 97.7 F 69 18 127/75 98 PG Care Time/CCT Total # of Minutes Spent Total Time Spent with Patient: Total time spent is greater than 50% in coordination of care (as documented) at patient's floor/unit and/or counseling patient: Coding Level of Care Code 98681 Subseq Hosp Care Lvl 3 Diagnoses Multifocal pneumonia J18.9 Hypoxia R09.02 Acute respiratory failure with hypoxia J96.[address] scan of lung R91.8
[2020-12-09] MEDS ORDERED: MAGNESIUM SULFATE / D5W 1 GM/100 ML BAG IV ONE (10:30)
[2020-12-09] MEDS: cefTRIAXone SODIUM 2,000 MG in DEXTROSE 5% 50 ML IV SCH (14:46)
[2020-12-09] MEDS: predniSONE 20 MG TAB PO SCH (14:47)
[2020-12-10] MEDS: LEVOTHYROXINE SODIUM 100 MCG TABLET PO SCH (05:10)
[2020-12-10] MEDS: predniSONE 20 MG TAB PO SCH (07:51)
[2020-12-10] MEDS: AZITHROMYCIN 250 MG TAB PO SCH (07:51)
[2020-12-10] MEDS: ENOXAPARIN INJ 40 MG/0.4 ML SYR SQ SCH (07:52)
[2020-12-10] MEDS: ASPIRIN 81 MG ECTAB PO SCH (07:52)
--- NOTE | 2020-12-10 12:21 | Pulmonology Progress Note ---
Date of Service December 10, 2020 Assessment & Plan (1) Multifocal pneumonia: (2) Hypoxia: (3) Acute respiratory failure with hypoxia: (4) Abnormal CT scan of lung: Impression: 85-year-old female without prior pulmonary history presenting with fevers, weight loss and an abnormal CT scan with nonproductive cough. Her procalcitonin is elevated which would argue for bacterial infection. This may be consistent with an atypical pneumonia. Recommendations: The urine Legionella antigen was negative. Mycoplasma antibodies, urine histoplasma antigen and QuantiFERON gold testing is pending. Differential includes atypical infection, viral infection and possible idiopathic interstitial pneumonia. Recommend a total of 7 days of antibiotics. Patient is very reluctant to undergo bronchoscopy and would prefer a more conservative approach. She has had improvement of her symptoms since hospital admission, but radiographic findings have been lagging behind. Continue prednisone for a total of 10 days. I would recommend dropping the dose to 30 mg on the fourth day. Tesha Gacria is the daughter. Her phone number is [phone]. Admission and Anticipated Discharge Date Admission Date: December 06, 2020 Subjective Patient is lying in the bed today. She has a nasal cannula in place and is saturating 97%. She denies any chest pain. No cough, fevers or chills. Shortness of breath is unchanged from yesterday. She has issues with her short- term memory. Review of Systems Review of Systems: All systems reviewed & are unremarkable except as noted in HPI & below Physical Exam Constitutional: WD/WN, vitals as above Neck: trachea midline, no thyromegaly Respiratory: normal respiratory effort, lungs clear to auscultation Cardiovascular: RRR, no murmur, no edema Gastrointestinal (Abdomen): normal bowel sounds, soft, nontender, no hepatosplenomegaly Musculoskeletal: Extremities: extremities normal to inspection Skin: no rashes, warm and dry Neurologic: Nonfocal exam Lymphatic: no cervical lymphadenopathy Results & Data Results & Data ([facility]) Vital Signs (Past 12 Hours) Vital Signs Temp Pulse Resp BP Pulse Ox 12/10/20 08:27 98.2 F 61 18 157/80 H 97 PG Care Time/CCT Total # of Minutes Spent Total Time Spent with Patient: Total time spent is greater than 50% in coordination of care (as documented) at patient's floor/unit and/or counseling patient: Coding Level of Care Code 72620 Subseq Hosp Care Lvl 2 Diagnoses Multifocal pneumonia J18.9 Hypoxia R09.02 Acute respiratory failure with hypoxia J96.[address] scan of lung R91.8
[2020-12-10 12:41] LABS: Quantiferon Mitogen-NIL >10.00 IU/mL; Quantiferon NIL 0.25 IU/mL; Quantiferon TB Gold Plus NEGATIVE (NEGATIVE); Quantiferon TB1-NIL <0.00 IU/mL; Quantiferon TB2-NIL <0.00 IU/mL
[2020-12-10] MEDS: cefTRIAXone SODIUM 2,000 MG in DEXTROSE 5% 50 ML IV SCH (13:20)
--- NOTE | 2020-12-10 16:01 | Hospitalist Progress Note ---
Date of Service December 10, 2020 Assessment & Plan (1) Multifocal pneumonia: bilateral patchy infiltrates responding well to Ceftriaxone and Zithromax, complete 7 days Legionella negative, Histoplasma, Chlamydia, quantiferon gold still pending doing much better, stable on 2L NC, no fever, WBC 8k yesterday, procalcitonin down to 0.44 on 12/08 complete 7 days of antibiotics (2) Abnormal CT scan of lung: appreciate pulmonary consultation needs repeat CT in several weeks, no plans for bronchoscopy at this time follow up on send out labs started on Prednisone 40mg daily on 12/09 complete 10 days total, taper to 30mg on 12/13 follow up with pulmonology in the clinic she is not interested in bronchoscopy (3) Abnormal chest x-ray: Bilateral symmetrical patchy opacities on xray- PNA vs. IPF vs. viral feeling much better the past 72 hours, good response to Ceftriaxone and Zithromax started prednisone 40mg on 12/09 down to 2L NC today favors an atypical bacterial pneumonia CT chest 12/06/20 IMPRESSION: 1. Cardiomegaly with intralobular septal thickening suggestive of pulmonary edema. 2. Extensive bilateral airspace opacities suggests multifocal pneumonia. 3. Trace pleural effusions. - Legionella antigen negative Histoplasmosis, mycoplasma, chlamydia sent - WBC 8k, requiring 2LNC, non productive cough, PCT 0.44 - Normal BNP - ESR/CRP mildly elevated (4) Acute respiratory failure with hypoxia: Pulse ox 86% on room air on arrival Placed on 2 L nasal cannula-continue supplemental O2 to keep pulse ox greater than 88% Secondary to pneumonia 98% on 2L today, try to titrate to room air (5) UTI (urinary tract infection): Likely contaminant but with suprapubic tenderness - continue Rocephin for pneumonia UTI ruled out, no growth on culture (6) CKD (chronic kidney disease), stage II: Follow avoid nephrotoxic agents as possible and if needed will minimize exposure - Patient at one time was on Lisinopril and Atenolol, unclear of discontinuation. Cr is stable, making urine (7) History of right-sided carotid endarterectomy: As above Start aspirin (8) Elevated troponin I level: Asymptomatic, normal ECG - most likely demand ischemia, not acs - risk stratify as above, add on ASA for primary prevention -Check lipid panel in the morning (9) Hypothyroid: Continue home Synthroid dose - TSH and T4 for morning (10) Arthritis: Tylenol PO - Patient uses cannabinoid oil at home, if able and needed, she may bring this from home and use. Will need to be ordered. (11) DVT prophylaxis: SCD's Lovenox 40 sq qd (12) Weakness: PT/OT consulted, has been sick for 2-3 weeks at home will likely need rehab however, family would like to take her home with 24/7 care and home health try to titrate off oxygen prior to discharge, likely ready by 12/12 (13) Hypomagnesemia: replaced Admission and Anticipated Discharge Date Admission Date: December 06, 2020 Subjective patient doing well, down to 2L today, no distress, sitting up in her chair still not eating great, slow to improve, ongoing issue appreciate pulmonology recommendations, on Prednisone, short 10 day course she is weak with therapy, family feels they can take her home and provide 24/7 care will try to wean her off oxygen prior to discharge, she is 98% on 2L so might be stable on room air no labs today Review of Systems Review of Systems: All systems reviewed & are unremarkable except as noted in Subjective Constitutional: + fatigue and + weakness; no fever Respiratory: + dyspnea on exertion; no cough and no dyspnea Cardiovascular: no chest pain and no edema Gastrointestinal: + early satiety; no abdominal pain, no nausea, no vomiting, no constipation and no diarrhea/loose stools Physical Exam Constitutional: WD/WN, vitals as above + frail appearing; no acute distress Neck: trachea midline, no thyromegaly Respiratory: normal respiratory effort, lungs clear to auscultation Cardiovascular: RRR, no murmur, no edema Gastrointestinal (Abdomen): normal bowel sounds, soft, nontender, no hepatosplenomegaly Musculoskeletal: Head/Neck/Chest: normocephalic, head atraumatic and neck supple Spine: normal cervical ROM and normal thoraco-lumbar ROM Extremities: extremities normal to inspection and + abnormal strength (generalized weakness, cannot transition independently) Skin: no rashes, warm and dry Neurologic: patellar DTR's 2+ bilat, sensation intact and PERRL, EOMI, accommodation nl, no face palsy, no dysarthria Psychiatric: A+Ox3, euthymic affect Lymphatic: no cervical or axillary lymphadenopathy Results & Data Results & Data ([facility]) Vital Signs (Past 12 Hours) Vital Signs Temp Pulse Pulse Resp BP Pulse Ox 12/10/20 15:53 36.3 C L 68 18 113/68 98 12/10/20 08:27 36.8 C 61 18 157/80 H 97 Laboratory Results Laboratory Results - last 24 hr 12/06/20 12/08/20 17:12 Unknown Urine Legionella Ag SEE NOTE TB Test (QFT) Gold Plus NEGATIVE TB Test (QFT) Nil 0.25 TB Test Mitogen - Nil >10.00 TB Test Ag - Nil 1 <0.00 TB Test Ag - Nil 2 <0.00 Medications Administered Current Inpatient Medications Acetaminophen (Acetaminophen 325 Mg Tab) 650 mg PO Q4H PRN PRN Reason: Pain or Fever Stop: 01/05/21 17:44 Albuterol (Albut/Ipratrop 3mg/0.5mg Neb 3 Ml Vial) 3 ml NEB Q4R PRN PRN Reason: Shortness Of Breath Or Wheezing Stop: 01/06/21 18:59 Albuterol (Albuterol Hfa 8 Gm Inhaler) 2 puffs INH Q6R PRN; Protocol PRN Reason: Shortness Of Breath Or Wheezing Stop: 01/06/21 00:59 Aspirin (Aspirin 81 Mg Ectab) 81 mg PO [facility] Stop: 01/06/21 08:59 Last Admin: 12/10/20 07:52 Dose: 81 mg Documented by: Azithromycin (Azithromycin 250 Mg Tab) 250 mg PO [facility] Stop: 12/14/20 08:59 Last Admin: 12/10/20 07:51 Dose: 250 mg Documented by: Enoxaparin Sodium (Enoxaparin Inj 40 Mg/0.4 Ml Syr) 40 mg SQ [facility] Stop: 01/05/21 16:14 Last Admin: 12/10/20 07:52 Dose: 40 mg Documented by: Ceftriaxone Sodium 2,000 mg/ (Dextrose) 50 mls @ 100 mls/hr IV Q24H [facility]; Protocol Stop: 12/14/20 13:59 Last Infusion: 12/10/20 13:50 Dose: Infused Documented by: Levothyroxine Sodium (Levothyroxine Sodium 100 Mcg Tablet) [facility] Stop: 01/06/21 06:29 Last Admin: 12/10/20 05:10 Dose: 100 mcg Documented by: Ondansetron HCl (Ondansetron Inj 2 Mg/Ml 2 Ml Vial) 4 mg IV Q6H PRN PRN Reason: Nausea Stop: 01/05/21 17:44 Polyethylene Glycol (Polyethylene (Miralax) 17 Gm Pack) 17 gm PO DAILY PRN PRN Reason: Constipation Stop: 01/05/21 17:44 Last Admin: 12/06/20 18:15 Dose: 17 gm Documented by: Prednisone (Prednisone 20 Mg Tab) 40 mg PO DAILY [facility] Stop: 01/08/21 13:04 Last Admin: 12/10/20 07:51 Dose: 40 mg Documented by: PG Care Time/CCT Total # of Minutes Spent Total Time Spent with Patient: Total time spent is greater than 50% in coordination of care (as documented) at patient's floor/unit and/or counseling patient: Coding Level of Care Code 69216 Subseq Hosp Care Lvl 2 Diagnoses Multifocal pneumonia J18.[address] scan of lung R91.8 Abnormal chest x-ray R93.89 Acute respiratory failure with hypoxia J96.01 UTI (urinary tract infection) N39.0 CKD (chronic kidney disease), stage II N18.2 History of right-sided carotid endarterectomy Z98.890 Elevated troponin I level R74.8 Hypothyroid E03.8 Hypothyroidism type: other Arthritis M19.90 DVT prophylaxis Z29.9 Weakness R53.1 Hypomagnesemia E83.42 (1) Hypothyroid Hypothyroidism type: other Qualified Code(s): E03.8 - Other specified hypothyroidism
[2020-12-11] MEDS: LEVOTHYROXINE SODIUM 100 MCG TABLET PO SCH (05:50)
[2020-12-11 06:45] LABS: Hematocrit (blood only) 35.1 % (37-47); Hemoglobin 11.7 g/dL (12.0-16.0); Mean Corpuscular Hemoglobin 30.8 pg (25-34); Mean Corpuscular Hgb Conc 33.3 g/dL (32-36); Mean Corpuscular Volume 92.4 fL (80-100); Platelet Count 201 K/uL (130-400); RDW Coefficient of Variation 15.8 % (11.5-14.5); RDW Standard Deviation 53.1 fL (36.4-46.3); White Blood Count 13.48 K/uL (4.8-10.8)
[2020-12-11 07:13] LABS: BUN Creatinine Ratio 37.2 (10-20); C Reactive Protein 0.61 mg/dl (0-0.29); Creatinine Clr Calc Pharmacy 74.2 ml/min; Est GFR (Non-African American) 85.4; Magnesium 1.9 mg/dl (1.8-2.4); Potassium 3.6 mmol/L (3.5-5.1)
[2020-12-11] MEDS: ASPIRIN 81 MG ECTAB PO SCH (08:03)
[2020-12-11] MEDS: AZITHROMYCIN 250 MG TAB PO SCH (08:03)
[2020-12-11] MEDS: predniSONE 20 MG TAB PO SCH (08:03)
[2020-12-11] MEDS: ENOXAPARIN INJ 40 MG/0.4 ML SYR SQ SCH (08:03)
--- NOTE | 2020-12-11 09:57 | Pulmonology Progress Note ---
Date of Service December 11, 2020 Assessment & Plan (1) Multifocal pneumonia: (2) Hypoxia: (3) Acute respiratory failure with hypoxia: (4) Abnormal CT scan of lung: Impression: 85-year-old female without prior pulmonary history presenting with fevers, weight loss and an abnormal CT scan with nonproductive cough. Her procalcitonin is elevated which would argue for bacterial infection. This may be consistent with an atypical pneumonia. Recommendations: The urine Legionella antigen, QuantiFERON gold testing, mycoplasma antibodies are negative/within normal limits. Chlamydia PCR was never sent. Urine histoplasma galactomannan antigen pending. Differential includes atypical infection, viral infection and possible idiopathic interstitial pneumonia. Recommend a total of 7 days of antibiotics. Patient is very reluctant to undergo bronchoscopy and would prefer a more conservative approach. She has had improvement of her symptoms since hospital admission, but radiographic findings have been lagging behind. Continue prednisone taper over a total of 10 days. She will need a follow-up x-ray as an outpatient and we will be happy to see her in outpatient clinic. Pulmonary will sign off at this time. Please call with questions. Thank you for the consultation. Admission and Anticipated Discharge Date Admission Date: December 06, 2020 Subjective She is sitting in a chair without her nasal cannula today. Saturation of 92% on room air. She did not have any complaints today. Review of systems is completely unchanged from yesterday. Review of Systems Review of Systems: Unchanged from prior Physical Exam Constitutional: WD/WN, vitals as above Neck: trachea midline, no thyromegaly Respiratory: normal respiratory effort, lungs clear to auscultation Cardiovascular: RRR, no murmur, no edema Gastrointestinal (Abdomen): normal bowel sounds, soft, nontender, no hepatosplenomegaly Musculoskeletal: Extremities: extremities normal to inspection Skin: no rashes, warm and dry Neurologic: Nonfocal exam Lymphatic: no cervical lymphadenopathy Results & Data Results & Data ([facility]) Vital Signs (Past 12 Hours) Vital Signs Temp Pulse Resp BP BP Pulse Ox 12/11/20 07:58 97.7 F 81 16 148/73 H 92 12/10/20 22:33 98.1 F 60 14 147/79 H 92 I reviewed the relevant vital signs, labs and imaging PG Care Time/CCT Total # of Minutes Spent Total Time Spent with Patient: Total time spent is greater than 50% in coordination of care (as documented) at patient's floor/unit and/or counseling patient: Coding Level of Care Code 34051 Subseq Hosp Care Lvl 2 Diagnoses Multifocal pneumonia J18.9 Hypoxia R09.02 Acute respiratory failure with hypoxia J96.[address] scan of lung R91.8
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
== END 2020-12-11 13:58 | disposition home health service (06) | DRG 193 ==
LOC: ED 12:47 → 2N 15:44 → SUATTDRO 15:44 → 2N 16:35 → 3W 12-09 03:23